=== PATIENT | female | born 1985 | race Caucasian/White ===

== ENCOUNTER 2016-11-07 12:59 | Emergency (ER) | payer OTHER ==
[~2016-11-07] VITALS: Ht 157.5 cm; Wt 67.0 kg
[~2016-11-07 12:59] MED LIST: ACYC400T2 PO; AMO500 PO; CYCL-319 PO; HYDR-3498 PO; IBUP-1542 PO
[2016-11-07 13:08] VITALS: Ht 157.5 cm; Wt 67.0 kg
[2016-11-07 15:27] LABS: ADD SCAN DIFF NO
[2016-11-07 15:30] LABS: BASOPHILS % 0.3 % (0.0-2.0); EOSINOPHILS # 0.1 10^3/ul (0.0-0.5); EOSINOPHILS % 1.7 % (0.0-7.0); HEMATOCRIT 41.8 % (37.0-47.0); HEMOGLOBIN 14.2 g/dl (12.0-16.0); LYMPHOCYTES # 1.8 10^3/ul (0.8-2.9); LYMPHOCYTES % 27.8 % (15.0-51.0); MEAN CORPUSCULAR HEMOGLOBIN 29.8 pg (29.0-33.0); MEAN CORPUSCULAR VOLUME 87.6 fl (82.0-101.0); MEAN PLATELET VOLUME 9.3 fl (7.4-10.4); MONOCYTE # 0.5 10^3/ul (0.3-0.9); MONOCYTES % 7.2 % (0.0-11.0); NEUTROPHIL # 4.1 10^3/ul (1.6-7.5); NEUTROPHILS % 62.5 % (39.0-77.0); PLATELET COUNT 244 10^3/UL (140-415); RED BLOOD COUNT 4.77 10^6/ul (4.20-5.40); RED CELL DISTRIBUTION WIDTH 12.9 % (11.5-14.5); WHITE BLOOD COUNT 6.5 10^3/ul (4.8-10.8)
[2016-11-07 15:34] LABS: ADD UMIC NO; URINE BILIRUBIN (Dip) NEGATIVE (NEGATIVE); URINE BLOOD (Dip) NEGATIVE (NEGATIVE); URINE COLOR LT. YELLOW (YELLOW); URINE GLUCOSE (Dip) NEGATIVE (NEGATIVE); URINE KETONES (Dip) NEGATIVE (NEGATIVE); URINE LEUKOCYTE ESTERASE (Dip) NEGATIVE (NEGATIVE); URINE NITRITE (Dip) NEGATIVE (NEGATIVE); URINE TOTAL PROTEIN (Dip) NEGATIVE (NEGATIVE); URINE UROBILINOGEN (Dip) 0.2 E.U./dL (0.1-1.0)
--- NOTE | 2016-11-07 15:47 | RADRPT ---
PROCEDURE: US Pelvis/OB. CLINICAL INDICATION: Pelvic pain TECHNIQUE: Multiple sonographic images of the pelvis were obtained utilizing a transabdominal and endovaginal technique. The images were reviewed on a PACS workstation. COMPARISON: None. FINDINGS: There is a small cystic structure within the endometrium measuring 0.6 cm which would correspond to a calculated gestational age of 5 weeks and 1 day. No pole or yolk sac is yet visualized. The right ovary measures 2.4 x 1.6 x 1.4 cm. The left ovary measures 4.2 x 3.8 x 3.6 cm. There is a 3.3 cm simple cyst in the left ovary. There is Doppler flow identified in the ovaries. There is a trace amount of free fluid in the cul-de-sac. RPTAT: AA IMPRESSION: Possible early intrauterine at 5 weeks and 1 day. Close followup ultrasound and hCG is recommended. Simple cyst in the left ovary. .Delvin Moss MD, MD Date Time Electronically viewed and signed by .Delvin Moss MD, on 11/07/2016 15:46 .S/
--- NOTE | 2016-11-07 16:27 | ERD ---
ER Documentation Chief Complaint Date/Time DATE: 11/07/16 Chief Complaint , Spotting, Left pelvic pain HPI The patient is a 31-year-old female, A0, who presents to the Emergency Department with complaint of spotting and left pelvic pain. The patient reports that three weeks ago she began to experiencing intermittent left pelvic pain. The pain has been coming and going since. Two weeks ago she was informed by her clinic that she is . Her last menstrual period was 09/24/2016, and therefore she believes that she is approximately 6 weeks and 2 days . She had her first appointment with her ROAD ROLLER ENGINEER today, at which time the patient was noted to be spotting, and to have a urinary tract infection. Given patient's spotting and recent left pelvic pain, she was referred to the ED for further evaluation and ultrasound imaging. Additionally , patient was placed on a course of Macrobid for her urinary tract infection. The patient denies any passage of clots or large pieces of tissue. Denies new vaginal discharge. Denies dysuria or flank pain. Denies fevers, chills, nausea , vomiting, dizziness, weakness, headache, lower extremity edema or any other complaints at this time. ROS All systems reviewed and are negative except as per history of present illness. Medications Home Meds Active Scripts Acetaminophen* (Acetaminophen*) 325 Mg Tablet, 325 MG PO Q4H Y for PAIN AND OR ELEVATED TEMP, #30 TAB Prov:HENRIK PATEL PA-C 11/07/16 Ibuprofen* (Motrin*) 600 Mg Tab, 600 MG PO Q6H Y for PAIN AND OR ELEVATED TEMP, #30 TAB Prov:BLAKE YADAV NP 05/08/16 Amoxicillin* (Amoxicillin*) 500 Mg Cap, 500 MG PO Q8, #30 CAP Prov:BLAKE YADAV NP 05/08/16 Acyclovir* (Acyclovir*) 400 Mg Tablet, 400 MG PO TID for 7 Days, TAB Prov:BLAKE YADAV NP 05/08/16 Hydrocodone Bit-Acetaminophen* ([place]*) 5-325 Mg Tab, 1 TAB PO Q6 Y for PAIN, # 20 TAB Prov:BLAKE YADAV NP 04/20/15 Ibuprofen* (Ibuprofen*) 600 Mg Tablet, 600 MG PO Q6H Y for PAIN AND OR ELEVATED TEMP, #30 TAB Prov:BLAKE YADAVGuera AUT[employer] MECHANICS TEACHER 04/20/15 Cyclobenzaprine Hcl* (Cyclobenzaprine Hcl*) 10 Mg Tablet, 5 MG PO TID, #21 TAB Prov:BLAKE YADAVGuera [employer] MECH[employer] TEACHER 04/20/15 Allergies Allergies: Coded Allergies: No Known Allergy (Unverified , 05/08/16) PMhx/Soc History of Surgery: Yes (ovarian cyst removal and appendectomy at 11yo) Anesthesia Reaction: No Hx Neurological Disorder: No Hx Respiratory Disorders: No Hx Cardiac Disorders: No Hx Psychiatric Problems: No Hx Miscellaneous Medical Probl: No Hx Alcohol Use: No Hx Substance Use: No Hx Tobacco Use: No Smoking Status: Never smoker Physical Exam Vitals Vital Signs Date Time Temp Pulse Resp B/P Pulse Ox O2 Delivery O2 Flow Rate FiO2 11/07/16 16:39 97.8 77 18 120/64 99 Room Air 11/07/16 13:08 98.1 67 18 124/67 99 Physical Exam GENERAL: Well-developed, well-nourished, in no acute distress HEENT: Head is normocephalic, atraumatic. No scleral pallor or icterus. Conjunctiva pink. Moist mucous membranes. NECK: Supple. Full range of motion. RESPIRATORY: Lungs are clear to auscultation bilaterally. Equal breath sounds. Normal expiratory effort. CARDIOVASCULAR: Regular rate and rhythm. S1 and S2 normal. GASTROINTESTINAL: Abdomen is soft, nontender, and nondistended. No guarding, no rebound tenderness. Normal bowel sounds. No abdominal bruits. No gross peritonitis. FLANK: No CVA tenderness. EXTREMITIES: No clubbing, cyanosis, or edema. Normal skin perfusion. Moving all extremities. No focal swelling or erythema. Distal pulses are palpable, 2+ bilaterally. Capillary refill is less than 2 seconds. NEUROLOGIC: The patient is alert, awake, and oriented. No focal deficits. INTEGUMENT: Skin is clean, dry and intact. PSYCHIATRIC: Appropriate; Cooperative. Result Diagram: 11/07/16 1515 Results 24 hrs Laboratory Tests Test 11/07/16 15:11 11/07/16 15:15 Urine Color LT. YELLOW Urine Clarity CLEAR Urine pH 7.5 Urine Specific [place] 1.010 Urine Ketones NEGATIVE Urine Nitrite NEGATIVE Urine Bilirubin NEGATIVE Urine Urobilinogen 0.2 E.U./dL Urine Leukocyte Esterase NEGATIVE Urine Hemoglobin NEGATIVE Urine Glucose NEGATIVE% Urine Total Protein NEGATIVE White Blood Count 6.510^3/ul Red Blood Count 4.7710^6/ul Hemoglobin 14.2g/dl Hematocrit 41.8% Mean Corpuscular Volume 87.6fl Mean Corpuscular Hemoglobin 29.8pg Mean Corpuscular Hemoglobin Concent 34.0g/dl Red Cell Distribution Width 12.9% Platelet Count 81260^3/UL Mean Platelet Volume 9.3fl Neutrophils % 62.5% Lymphocytes % 27.8% Monocytes % 7.2% Eosinophils % 1.7% Basophils % 0.3% Nucleated Red Blood Cells % 0.0/100WBC Neutrophils # 4.110^3/ul Lymphocytes # 1.810^3/ul Monocytes # 0.510^3/ul Eosinophils # 0.110^3/ul Basophils # 0.010^3/ul Nucleated Red Blood Cells # 0.010^3/ul Beta HCG, Quantitative 3308.3mIU/ml Procedures/MDM DIAGNOSTIC TESTS AND INTERPRETATION: PROCEDURE: US Pelvis/OB. CLINICAL INDICATION: Pelvic pain TECHNIQUE: Multiple sonographic images of the pelvis were obtained utilizing a transabdominal and endovaginal technique. The images were reviewed on a PACS workstation. COMPARISON: None. FINDINGS: There is a small cystic structure within the endometrium measuring 0.6 cm which would correspond to a calculated gestational age of 5 weeks and 1 day. No pole or yolk sac is yet visualized. The right ovary measures 2.4 x 1.6 x 1.4 cm. The left ovary measures 4.2 x 3.8 x 3.6 cm. There is a 3.3 cm simple cyst in the left ovary. There is Doppler flow identified in the ovaries. There is a trace amount of free fluid in the cul-de-sac. IMPRESSION:Possible early intrauterine at 5 weeks and 1 day. Close followup ultrasound and hCG is recommended. Simple cyst in the left ovary. .Delvin Moss MD, MD Date Time Electronically viewed and signed by .Delvin Moss MD, on 11/07/2016 15: 46 The possibility of threatened vs. early vs. ectopic was discussed with the patient and she was told to follow up with her RO[facility] [employer]ER ENGINEER within 2-3 days for re-evaluation. The patient complies and agrees with plan. MEDICAL DECISION MAKING: This is a 31-year-old female presenting to the Emergency Department complaining of vaginal spotting and left pelvic pain. She had no significant abnormalities noted on physical examination. Vital signs were normal. Differential diagnosis includes, but is not limited to, ectopic , cervicitis, fibroids, molar , implantation bleeding, heterotopic , septic , missed , incomplete , inevitable , threatened , complete , coagulopathy, fibroids, adenomyosis, endometriosis, neoplasia, vaginitis, PID, vaginal trauma , dysfunctional uterine bleeding. No significant abnormalities were noted on testing ordered. Hemoglobin and hematocrit are stable, no severe anemia. Beta hCG is 3308.3. Rh (+), no indication for RhoGAM. Ultrasound performed revealed a small cystic structure within the endometrium measuring 0.6 cm which would correspond to a calculated gestational age of 5 weeks and 1 day. No pole or yolk sac is yet visualized.Additionally, a 3.3 cm simple cyst in the left ovary. After rest the patient reports no new complaints. Upon review and interpretation of the patient's presentation and overall ER course, I believe the patient's symptoms are most consistent with threatened and left ovarian cyst. However, at this time, ectopic cannot be ruled out, as no pole or yolk sac were visualized. The patient patient is in stable condition with stable vital signs and therefore can be discharged home with strict return precautions for signs of deteriorating or worsening condition. The patient is advised to follow up with her RO[facility] [employer]ER ENGINEER within 2-3 days for reevaluation and further management, or return to the ER sooner for any worsening symptoms. I shared all laboratory and diagnostic imaging studies with the patient at length and in great detail, and the patient verbally understands and agrees with the plan for further observation and care as an outpatient. At the time of discharge, all questions were answered. Departure Diagnosis: Primary Impression: Threatened Additional Impressions: Pelvic pain during Left ovarian cyst Condition: Stable Patient Instructions: Ovarian Cyst, Possible Miscarriage (Threatened ) , What Are Ovarian Cysts? Additional Instructions: Follow up with your ROAD ROLLER ENGINEER within 2-3 days for repeat beta hCG, reevaluation and further management. Return to the ED sooner for any new or worsening symptoms. HENRIK PATEL PA-C Nov 07, 2016 16:27
[2016-11-07] MEDS ORDERED: ACET325T45 PO (16:28)
[2016-11-07 16:39] VITALS: BP 120/64; PULSE 77; RESP 18; TEMP 97.8
== END 2016-11-07 16:40 | disposition home or self-care (01) ==
LOC: FTE 12:59
DX: O20.0 Threatened abortion (principal); R10.2 Pelvic and perineal pain; O34.81 Maternal care for other abnormalities of pelvic organs, first trimester; Z3A.01 Less than 8 weeks gestation of pregnancy
CPT/HCPCS: 36415; 76801; 76817; 81003; 84702; 85025; 86900; 86901; 87086

== ENCOUNTER 2016-12-14 08:32 | Emergency (ER) | payer OTHER ==
[~2016-12-14] VITALS: Ht 160 cm; Wt 78.0 kg
[~2016-12-14 08:32] MED LIST changes: +ACET325T45 PO
[2016-12-14 08:37] VITALS: Ht 160 cm; Wt 78.0 kg
--- NOTE | 2016-12-14 09:53 | ERD ---
ER Documentation Chief Complaint Date/Time DATE: 12/14/16 TIME: 09:49 Chief Complaint back pain , abd cramping , 10 weeks HPI 31-year-old female who is A0 approximately 10 weeks when he comes in with back pain, pelvic cramping, and frequent urination. Patient reports pain in the suprapubic region, cramping of nature, as well as in low back and right CVA area. She states that she has been seen by her [employer]ANCH SUPERVISOR, last week at 9 weeks and reports that there were positive heart tones. Pain gets better with Tylenol. Her last menstrual period was on September 24, 2016. Her history includes a right ovarian cyst as well as a left ovarian cyst. She reports that she had vaginal bleeding earlier in the however no recent vaginal bleeding. And completed Macrobid about 1 week ago. ROS All systems reviewed and are negative except as per history of present illness. Medications Home Meds Active Scripts Acetaminophen* (Acetaminophen*) 325 Mg Tablet, 325 MG PO Q4H Y for PAIN AND OR ELEVATED TEMP, #30 TAB Prov:HENRIK PATEL PA-C 11/07/16 Ibuprofen* (Motrin*) 600 Mg Tab, 600 MG PO Q6H Y for PAIN AND OR ELEVATED TEMP, #30 TAB Prov:BLAKE YADAV NP 05/08/16 Amoxicillin* (Amoxicillin*) 500 Mg Cap, 500 MG PO Q8, #30 CAP Prov:BLAKE YADAV NP 05/08/16 Acyclovir* (Acyclovir*) 400 Mg Tablet, 400 MG PO TID for 7 Days, TAB Prov:BLAKE YADAV NP 05/08/16 Hydrocodone Bit-Acetaminophen* ([place]*) 5-325 Mg Tab, 1 TAB PO Q6 Y for PAIN, # 20 TAB Prov:BLAKE YADAV NP 04/20/15 Ibuprofen* (Ibuprofen*) 600 Mg Tablet, 600 MG PO Q6H Y for PAIN AND OR ELEVATED TEMP, #30 TAB Prov:BLAKE YADAV NP 04/20/15 Cyclobenzaprine Hcl* (Cyclobenzaprine Hcl*) 10 Mg Tablet, 5 MG PO TID, #21 TAB Prov:BLAKE YADAV NP 04/20/15 Allergies Allergies: Coded Allergies: No Known Allergy (Unverified , 12/14/16) PMhx/Soc History of Surgery: Yes (ovarian cyst removal and appendectomy at 11yo) Anesthesia Reaction: No Hx Neurological Disorder: No Hx Respiratory Disorders: No Hx Cardiac Disorders: No Hx Psychiatric Problems: No Hx Miscellaneous Medical Probl: No Hx Alcohol Use: No Hx Substance Use: No Hx Tobacco Use: No Smoking Status: Never smoker Physical Exam Vitals Vital Signs Date Time Temp Pulse Resp B/P Pulse Ox O2 Delivery O2 Flow Rate FiO2 12/14/16 11:44 98.3 12/14/16 08:37 98.8 90 20 129/80 99 Physical Exam General: Well-developed, well-nourished. The patient appears in no acute distress. HEENT: Head is normocephalic, atraumatic. No scleral icterus. Neck: Supple. Nontender. Lungs: Clear to auscultation. Normal air movement. Heart: Regular rate and rhythm. S1 and S2 are normal. No murmurs, gallops, or rubs. Abdomen: Soft, suprapubic tenderness, nondistended. Bowel sounds are normoactive. No McBurney's tenderness, no rebound pain, negative Shafer sign. Back: Diffuse paraspinal tenderness in the lumbar spine on the left side Extremities: No clubbing or cyanosis. Normal pulses. Moving extremities x 4. No weakness. Neurologic: Alert and oriented 3. No focal deficits. Skin: Normal turgor. No rash or lesions. Result Diagram: 12/14/16 0944 Results 24 hrs Laboratory Tests Test 12/14/16 09:44 12/14/16 09:49 White Blood Count 5.310^3/ul Red Blood Count 4.2110^6/ul Hemoglobin 12.6g/dl Hematocrit 36.4% Mean Corpuscular Volume 86.5fl Mean Corpuscular Hemoglobin 29.9pg Mean Corpuscular Hemoglobin Concent 34.6g/dl Red Cell Distribution Width 12.8% Platelet Count 32300^3/UL Mean Platelet Volume 9.4fl Neutrophils % 67.7% Lymphocytes % 23.6% Monocytes % 6.6% Eosinophils % 1.5% Basophils % 0.2% Nucleated Red Blood Cells % 0.0/100WBC Neutrophils # 3.610^3/ul Lymphocytes # 1.310^3/ul Monocytes # 0.410^3/ul Eosinophils # 0.110^3/ul Basophils # 0.010^3/ul Nucleated Red Blood Cells # 0.010^3/ul Beta HCG, Quantitative 70023.0mIU/ml Urine Color LT. YELLOW Urine Clarity CLEAR Urine pH 6.0 Urine Specific [place] 1.010 Urine Ketones NEGATIVE Urine Nitrite NEGATIVE Urine Bilirubin NEGATIVE Urine Urobilinogen 0.2 E.U./dL Urine Leukocyte Esterase NEGATIVE Urine Hemoglobin NEGATIVE Urine Glucose NEGATIVE% Urine Total Protein NEGATIVE PROCEDURE: US Pelvis. CLINICAL INDICATION: Pelvic cramping. TECHNIQUE: Multiple sonographic images of the pelvis were obtained utilizing a transabdominal and endovaginal technique. The images were reviewed on a PACS workstation. COMPARISON: 11/07/2016 FINDINGS: Uterus is upper limit normal in size at 12.1 x 8.7 x 8.2 cm. There is an intrauterine gestational sac which contains a yolk sac and a pole with cardiac activity at 163 beats per minute. Mean gestational sac size is 3.66 cm consist with a 6-cskz-9-day gestation. Mean crown-rump length is 3.64 cm consistent with a 51-ryno-6-day gestation. There are no abnormal fluid collections. The right ovary measures 2.8 x 1.2 x 1.6 cm. Left ovary measures 5.1 x 3.3 x 4.1 cm. There is a 3.3 x 3.4 x 3.4 cm left ovarian cyst. There are no adnexal masses or free fluid in the cul-de-sac. IMPRESSION: 1. Single living intrauterine gestation with a mean gestational age by ultrasound of 9-week 6 days plus or minus 5 days. Estimated date of delivery is 07/13/2017. RPTAT: [facility] Physician Fatemeh Date Time Electronically viewed and signed by Physician Fatemeh on 12/14/2016 10: 43 JH/ Procedures/MDM ED COURSE: Labs, urine and pelvic ultrasound were obtained. MDM: 31-year-old female presents with back pain, pelvic cramping, patient has a single live intrauterine , labs and urine were also obtained. She does not have any continuing urinary tract infection, signs of pyelonephritis. She does have reproducible back pain with palpation that is likely musculoskeletal. No evidence of any adnexal masses, tubo-ovarian abscess, PID, cervicitis, pyelonephritis. Departure Diagnosis: Primary Impression: First trimester Condition: Good MAURICE CESAR PA-C Dec 14, 2016 09:53
[2016-12-14 09:59] LABS: ADD SCAN DIFF NO
[2016-12-14 10:03] LABS: ADD UMIC NO; URINE BILIRUBIN (Dip) NEGATIVE (NEGATIVE); URINE BLOOD (Dip) NEGATIVE (NEGATIVE); URINE COLOR LT. YELLOW (YELLOW); URINE GLUCOSE (Dip) NEGATIVE (NEGATIVE); URINE KETONES (Dip) NEGATIVE (NEGATIVE); URINE LEUKOCYTE ESTERASE (Dip) NEGATIVE (NEGATIVE); URINE NITRITE (Dip) NEGATIVE (NEGATIVE); URINE TOTAL PROTEIN (Dip) NEGATIVE (NEGATIVE); URINE UROBILINOGEN (Dip) 0.2 E.U./dL (0.1-1.0)
[2016-12-14 10:05] LABS: BASOPHILS % 0.2 % (0.0-2.0); EOSINOPHILS # 0.1 10^3/ul (0.0-0.5); EOSINOPHILS % 1.5 % (0.0-7.0); HEMATOCRIT 36.4 % (37.0-47.0); HEMOGLOBIN 12.6 g/dl (12.0-16.0); LYMPHOCYTES # 1.3 10^3/ul (0.8-2.9); LYMPHOCYTES % 23.6 % (15.0-51.0); MEAN CORPUSCULAR HEMOGLOBIN 29.9 pg (29.0-33.0); MEAN CORPUSCULAR HGB CONC 34.6 g/dl (32.0-37.0); MEAN CORPUSCULAR VOLUME 86.5 fl (82.0-101.0); MEAN PLATELET VOLUME 9.4 fl (7.4-10.4); MONOCYTE # 0.4 10^3/ul (0.3-0.9); MONOCYTES % 6.6 % (0.0-11.0); NEUTROPHIL # 3.6 10^3/ul (1.6-7.5); NEUTROPHILS % 67.7 % (39.0-77.0); PLATELET COUNT 206 10^3/UL (140-415); RED BLOOD COUNT 4.21 10^6/ul (4.20-5.40); RED CELL DISTRIBUTION WIDTH 12.8 % (11.5-14.5); WHITE BLOOD COUNT 5.3 10^3/ul (4.8-10.8)
--- NOTE | 2016-12-14 10:43 | RADRPT ---
PROCEDURE: US Pelvis. CLINICAL INDICATION: Pelvic cramping. TECHNIQUE: Multiple sonographic images of the pelvis were obtained utilizing a transabdominal and endovaginal technique. The images were reviewed on a PACS workstation. COMPARISON: 11/07/2016 FINDINGS: Uterus is upper limit normal in size at 12.1 x 8.7 x 8.2 cm. There is an intrauterine gestational s ac which contains a yolk sac and a pole with cardiac activity at 163 beats per minute. Mean g estational sac size is 3.66 cm consist with a 1-nkbe-4-day gestation. Mean crown-rump length is 3.6 4 cm consistent with a 37-xmyl-3-day gestation. There are no abnormal fluid collections. The right ovary measures 2.8 x 1.2 x 1.6 cm. Left ovary measures 5.1 x 3.3 x 4.1 cm. There is a 3.3 x 3.4 x 3.4 cm left ovarian cyst. There are no adnexal masses or free fluid in the cul-de-sac. IMPRESSION: 1. Single living intrauterine gestation with a mean gestational age by ultrasound of 9-week 6 days p hunter or minus 5 days. Estimated date of delivery is 07/13/2017. RPTAT: [facility] Physician Fatemeh Date Time Electronically viewed and signed by Physician Fatemeh on 12/14/2016 10:43 JH/
[2016-12-14 11:44] VITALS: TEMP 98.3
== END 2016-12-14 11:44 | disposition home or self-care (01) ==
LOC: FTE 08:32
DX: O99.89 Other specified diseases and conditions complicating pregnancy, childbirth and the puerperium (principal); M54.9 Dorsalgia, unspecified; R10.2 Pelvic and perineal pain; Z3A.10 10 weeks gestation of pregnancy
CPT/HCPCS: 36415; 76801; 81003; 84702; 85025; 86900; 86901; 87086

== ENCOUNTER 2017-01-20 14:43 | Emergency (ER) | payer OTHER ==
[~2017-01-20] VITALS: Wt 79.5 kg
--- NOTE | 2017-01-20 15:24 | ERD ---
ER Documentation Chief Complaint Date/Time DATE: 01/20/17 TIME: 15:18 Chief Complaint r. flank pain, 15 wks preg HPI 31-year-old female who presented emergency department for right flank pain that started last night. She also complains of pelvic pain. Her right flank pain was described as sharp. Her pelvic pain was described as crampy. Stated that she has UTI a week ago and was prescribed with nitrofurantoin by her OB. She also added that she has UTIs for the past 2 months and that her first antibiotic was nitrofurantoin, was changed to erythromycin by her OB, then she got another UTI and was prescribed with Keflex. With her last antibiotic use was nitrofurantoin. She is sexually active with one partner only, her who has no symptoms. Denies headache, loss of consciousness, dizziness, blurry vision, changes in vision, photophobia, facial pain, ear pain, throat pain, difficulty swallowing, neck pain, shoulder pain, chest pain, cough, hemoptysis, loss of appetite, hematochezia, diarrhea, constipation, urinary symptoms, bladder and bowel incontinences, extremity weakness, extremity tenderness, numbness or tingling sensation, difficulty walking, recent travel, recent exposure to illness, fever , chills. Allergy: No known drug allergies. PMH: Left ovarian cyst. Family medical history: AO LMP: September 24, 2016. RANDY: July 09, 2017. Medications: vitamins. Macrobid. Surgery: "I had a left ovarian cyst surgery." Primary Social History: Denies smoking, use of alcohol, use of illegal drugs. ROS All systems reviewed and are negative except as per history of present illness. Medications Home Meds Active Scripts Acetaminophen* (Acetaminophen*) 325 Mg Tablet, 325 MG PO Q4H Y for PAIN AND OR ELEVATED TEMP, #30 TAB Prov:HENRIK PATEL PA-C 11/07/16 Ibuprofen* (Motrin*) 600 Mg Tab, 600 MG PO Q6H Y for PAIN AND OR ELEVATED TEMP, #30 TAB Prov:BLAKE YADAV NP 05/08/16 Amoxicillin* (Amoxicillin*) 500 Mg Cap, 500 MG PO Q8, #30 CAP Prov:BLAKE YADAV NP 05/08/16 Acyclovir* (Acyclovir*) 400 Mg Tablet, 400 MG PO TID for 7 Days, TAB Prov:VICENTABLAKE CAUSEYUri Garza AGED OR DISABLED CARER 05/08/16 Hydrocodone Bit-Acetaminophen* ([place]winna*) 5-325 Mg Tab, 1 TAB PO Q6 Y for PAIN, # 20 TAB Prov:VICENTABLAKE RAO Kayla AGED OR DISABLED CARER 04/20/15 Ibuprofen* (Ibuprofen*) 600 Mg Tablet, 600 MG PO Q6H Y for PAIN AND OR ELEVATED TEMP, #30 TAB Prov:REJIBLAKE CABALLERO AGED OR DISABLED CARER 04/20/15 Cyclobenzaprine Hcl* (Cyclobenzaprine Hcl*) 10 Mg Tablet, 5 MG PO TID, #21 TAB Prov:VICENTABLAKE JALEN Garza AGED OR DISABLED CARER 04/20/15 Allergies Allergies: Coded Allergies: No Known Allergy (Unverified , 12/14/16) PMhx/Soc History of Surgery: Yes (ovarian cyst removal and appendectomy at 11yo) Anesthesia Reaction: No Hx Neurological Disorder: No Hx Respiratory Disorders: No Hx Cardiac Disorders: No Hx Psychiatric Problems: No Hx Miscellaneous Medical Probl: No Hx Alcohol Use: No Hx Substance Use: No Hx Tobacco Use: No Physical Exam Vitals Vital Signs Date Time Temp Pulse Resp B/P Pulse Ox O2 Delivery O2 Flow Rate FiO2 01/20/17 14:46 97.6 97 20 130/77 99 Physical Exam CONSTITUTIONAL: Well-appearing; well-nourished; in no apparent distress. HEAD: Normocephalic; atraumatic. EYES: Conjunctiva clear, sclera non-icteric, EOM intact. PERRL Ears: Hearing intact. EACs clear, TMs non-bulging, non-inflamed, translucent & mobile, ossicles normal appearance, No obstructions, no erythema, no discharges Nose: No obstructions. No polyps. No external lesions. Mucosa non-inflamed. No external lesions, septum and turbinates normal. No rhinorrhea. No discharges. Frontal sinus is non-tender to palpation. Maxillary sinus is non-tender to palpation. MOUTH: Moist mucous membranes, no lesion, no obstructions, no vesicles, no thrush, patent airway Throat: Uvula in midline. Right tonsil is +1 with no erythema, no exudate. Left tonsil is +1 with no erythema, no exudate. Tolerating secretions well. Good gag reflex. Patent airway. Neck: Supple, without lesions, bruits, or adenopathy. No mass. Thyroid non- enlarged and non-tender to palpation. CHEST: Symmetrical chest. Respirations even and not labored. No retractions noted. CARDIOVASCULAR: Normal S1, S2. RRR. No murmurs, gallops. RESPIRATORY: Normal chest excursion with respiration; breath sounds clear and equal bilaterally; no wheezes, rhonchi, or rales. Breathing even and unlabored. Speaking in clear, full, and complete sentences w/ ease. ABDOMEN: Normal bowel sounds normal. Soft, round, non-distended, non-guarding, no tenderness, no rebound, no organomegaly, no masses, no pulsating abdominal mass. No hernia. No peritoneal signs. : Right CVA tenderness on light and deep palpation/percussion. No left CVA tenderness. BACK: Symmetrical shoulder. Spine is midline without deformity, tenderness. No evidence of trauma or deformity. PELVIS: Stable pelvis. No evidence of trauma or deformity. Tenderness below the navel area. MUSCULOSKELETAL: Normal gait and station. No misalignment, asymmetry, crepitation, defects, tenderness, masses, effusions, decreased range of motion, instability, atrophy or abnormal strength or tone in the head, neck, spine, ribs , pelvis or extremities. No calf tenderness. NEUROVASCULAR: Distal pulses are present. Pedal pulse are present, equal, and normal. Capillary refills are < 2 seconds. NEUROLOGIC: Alert and oriented x4. Speaks full and clear sentences. Cranial Nerves II-XII normal. Sensation to pain, touch, and proprioception normal. Grossly unremarkable. No neurologic deficits. Romberg test is negative. PSYCHOLOGICAL: The patients mood and manner are appropriate. No hallucinations , delusions. Not SI. Not HI. Has the capacity to decide for self SKIN: Normal for age and ethnicity; warm; dry; good turgor; no apparent lesions or exudates. No rashes, hives, discoloration. Intact. Result Diagram: 01/20/17 1541 01/20/17 1541 Results 24 hrs Laboratory Tests Test 01/20/17 15:41 White Blood Count 6.710^3/ul Red Blood Count 3.9710^6/ul Hemoglobin 12.4g/dl Hematocrit 34.1% Mean Corpuscular Volume 85.9fl Mean Corpuscular Hemoglobin 31.2pg Mean Corpuscular Hemoglobin Concent 36.4g/dl Red Cell Distribution Width 13.0% Platelet Count 12743^3/UL Mean Platelet Volume 9.5fl Neutrophils % 68.7% Lymphocytes % 23.8% Monocytes % 6.4% Eosinophils % 0.7% Basophils % 0.1% Nucleated Red Blood Cells % 0.0/100WBC Neutrophils # 4.610^3/ul Lymphocytes # 1.610^3/ul Monocytes # 0.410^3/ul Eosinophils # 0.110^3/ul Basophils # 0.010^3/ul Nucleated Red Blood Cells # 0.010^3/ul Urine Color YELLOW Urine Clarity CLEAR Urine pH 6.0 Urine Specific [place] 1.025 Urine Ketones 15 Urine Nitrite NEGATIVE Urine Bilirubin NEGATIVE Urine Urobilinogen 0.2 E.U./dL Urine Leukocyte Esterase NEGATIVE Urine Hemoglobin NEGATIVE Urine Glucose NEGATIVE% Urine Total Protein NEGATIVE Sodium Level 141mmol/L Potassium Level 4.2mmol/L Chloride Level 110mmol/L Carbon Dioxide Level 21mmol/L Anion Gap 14 Blood Urea Nitrogen 3mg/dl Creatinine 0.52mg/dl Glucose Level 86mg/dl Calcium Level 8.9mg/dl Total Bilirubin 0.2mg/dl Direct Bilirubin 0.00mg/dl Indirect Bilirubin 0.2mg/dl Aspartate Amino Transf (AST/SGOT) 30IU/L Alanine Aminotransferase (ALT/SGPT) 38IU/L Alkaline Phosphatase 72IU/L Total Protein 7.3g/dl Albumin 4.3g/dl Globulin 3.00g/dl Albumin/Globulin Ratio 1.43 Amylase Level 102U/L Lipase 92U/L Beta HCG, Quantitative 42616.0mIU/ml Current Medications Medications (Trade) Dose Ordered Sig/Stacey Route PRN Reason Start Time Stop Time Status Last Admin Dose Admin Acetaminophen (Tylenol Tab) 500 mg ONCE STAT PO 01/20/17 15:27 01/20/17 15:28 DC 01/20/17 15:35 Ondansetron HCl (Zofran Odt) 4 mg ONCE STAT ODT 01/20/17 15:38 01/20/17 15:41 DC 01/20/17 15:42 Ondansetron HCl (Zofran Odt) 4 mg STK-MED ONCE ODT 01/20/17 15:39 01/20/17 15:40 DC Procedures/MDM Examination: Please see physical examination. Disease process, medical treatment was explained to the patient and family member. They verbalized understanding and agreed with the diagnostic tests, medical treatment, and follow-up care. Radiology: OB ultrasound Impression: Single viable intrauterine gestation of approximately 15 weeks 6 days. Estimated date of delivery 07/08/2017. Estimated weight 135 g. Maternal left Vigen 2.5 cm cyst. Renal ultrasound Impression: Unremarkable renal ultrasound. Blood works: Reviewed. POC urine : Urinalysis: Reviewed. Culture urine: Awaiting for results. Treatment: Tylenol. Re-evaluation: Denies headache, dizziness, blurry vision, neck pain, shoulder pain, chest pain, abdominal pain, back pain. No episodes of emesis here in the emergency department. There is no right upper/right lower/left upper/left lower /epigastric abdominal tenderness to light and deep palpation. Negative on Rovsing's sign. Negative [place] sign. No CVA tenderness. Denies vaginal bleeding. No peritoneal signs. Ambulatory with steady gait. Stated that she feels much better at this time. Consultation: None. Differential diagnosis: Ectopic miscarriage versus nephrolithiasis versus pyelonephritis versus complicated urinary tract infection versus urinary tract infection Medical decision m[age]-year-old female who presented emergency department for right flank pain that started last night. She also complains of pelvic pain. Her right flank pain was described as sharp. Her pelvic pain was described as crampy. Stated that she has UTI a week ago and was prescribed with nitrofurantoin by her OB. She also added that she has UTIs for the past 2 months and that her first antibiotic was nitrofurantoin, was changed to erythromycin by her OB, then she got another UTI and was prescribed with Keflex. With her last antibiotic use was nitrofurantoin. She is sexually active with one partner only, her who has no symptoms pelvic pain in , flank pain and . I explained to the patient that this is a natural OB process. Instructed her to follow-up with her OB in the next 24-48 hours. She and her agreed and verbalized understanding of the plan of care. This case was discussed with supervising emergency room physician, Dr. Bucky Gregory who agreed in my medical decision making. Medications prescribed are the following: Tylenol. Zofran. Patient and family member are made aware of the side effects and adverse reactions of the medications prescribed. Instructed on when to seek emergent and medical attention in case allergic/anaphylactic reactions or severe side effects and or adverse reactions to medications. Patient and family member verbalized understanding. Patient instructed to: Instructed to follow-up with his PCP in 24-48 hours. Follow-up with OB in the next 24-48 hours. Patient stated that she will make sure to see her OB in the next 24 hours. Instructed to Call 911 for chest pain, shortness of breath. Advised to come back here in ED as soon as possible for severity of symptoms which includes but not limited to: any new symptoms; shortness of breath/difficulty of breathing; cardiovascular changes; severe gastrointestinal symptoms; signs and symptoms of bleeding and or infection; signs of compartment syndrome/neurovascular changes; neurological changes/deficits. Patient and family member verbalized understanding. Upon discharge, patient is alert and oriented x 4, speaks full and clear sentences, denies pain, has no neurological deficits, has no neurovascular deficits, difficulty of breathing. Breathing even and unlabored. Lung sounds are clear to auscultation. Not in distress. Appears comfortable. Ambulatory with steady gait. Appears satisfied with care provided here in ED. Departure Diagnosis: Primary Impression: Pelvic pain during Additional Impression: Flank pain Condition: Good Additional Instructions: Patient instructed to: Instructed to follow-up with his PCP in 24-48 hours. Follow-up with OB in the next 24-48 hours. Patient stated that she will make sure to see her OB in the next 24 hours. Instructed to Call 911 for chest pain, shortness of breath. Advised to come back here in ED as soon as possible for severity of symptoms which includes but not limited to: any new symptoms; shortness of breath/difficulty of breathing; cardiovascular changes; severe gastrointestinal symptoms; signs and symptoms of bleeding and or infection; signs of compartment syndrome/neurovascular changes; neurological changes/deficits. Patient and family member verbalized understanding. LIBERTY MENEZES Jan 20, 2017 15:23
[2017-01-20] MEDS ORDERED: ACETAMINOPHEN 500 MG TAB PO STA (15:27)
[2017-01-20] MEDS ORDERED: ONDANSETRON (ODT) 4 MG TAB ODT STA (15:38)
[2017-01-20] MEDS ORDERED: ONDANSETRON (ODT) 4 MG TAB ODT ONE (15:39)
[2017-01-20 15:47] LABS: ADD SCAN DIFF NO
[2017-01-20 15:50] LABS: BASOPHILS % 0.1 % (0.0-2.0); EOSINOPHILS # 0.1 10^3/ul (0.0-0.5); EOSINOPHILS % 0.7 % (0.0-7.0); HEMATOCRIT 34.1 % (37.0-47.0); HEMOGLOBIN 12.4 g/dl (12.0-16.0); LYMPHOCYTES # 1.6 10^3/ul (0.8-2.9); LYMPHOCYTES % 23.8 % (15.0-51.0); MEAN CORPUSCULAR HEMOGLOBIN 31.2 pg (29.0-33.0); MEAN CORPUSCULAR HGB CONC 36.4 g/dl (32.0-37.0); MEAN CORPUSCULAR VOLUME 85.9 fl (82.0-101.0); MEAN PLATELET VOLUME 9.5 fl (7.4-10.4); MONOCYTE # 0.4 10^3/ul (0.3-0.9); MONOCYTES % 6.4 % (0.0-11.0); NEUTROPHIL # 4.6 10^3/ul (1.6-7.5); NEUTROPHILS % 68.7 % (39.0-77.0); PLATELET COUNT 183 10^3/UL (140-415); RED BLOOD COUNT 3.97 10^6/ul (4.20-5.40); WHITE BLOOD COUNT 6.7 10^3/ul (4.8-10.8)
[2017-01-20 15:52] LABS: ADD UMIC NO; URINE BILIRUBIN (Dip) NEGATIVE (NEGATIVE); URINE BLOOD (Dip) NEGATIVE (NEGATIVE); URINE COLOR YELLOW (YELLOW); URINE GLUCOSE (Dip) NEGATIVE (NEGATIVE); URINE KETONES (Dip) 15 (NEGATIVE); URINE LEUKOCYTE ESTERASE (Dip) NEGATIVE (NEGATIVE); URINE NITRITE (Dip) NEGATIVE (NEGATIVE); URINE TOTAL PROTEIN (Dip) NEGATIVE (NEGATIVE); URINE UROBILINOGEN (Dip) 0.2 E.U./dL (0.1-1.0)
--- NOTE | 2017-01-20 16:15 | RADRPT ---
PROCEDURE: US OB. CLINICAL INDICATION: age and weight. TECHNIQUE: Multiple sonographic images of the pelvis were obtained. Transabdominal imaging only w as performed. The images were reviewed on a PACS workstation. COMPARISON: No prior studies are available for comparison. FINDINGS: There is a single viable intrauterine gestation. Cardiac activity is present with 146 beats per minute. There is a variable breech presentation. Measurements were made in order to determine age. The results are as follows: BPD = 3.2 cm HC = 11.6 cm. AC = 9.7 cm. FL = 2.0 cm. Estimated gestational age of approximately 15 weeks a 6 days. The estimated date of delivery is 07/08/2017. The EFW = 135 g. The placenta is posterior. There is no evidence for an abruption or placenta previa. There are no anomalies identified. There is a normal amount of amniotic fluid present. There is a 2.5 cm maternal left ovarian cyst. IMPRESSION: 1. Single viable intrauterine gestation of approximately 15 weeks 6 days. 2. Estimated date of delivery 07/08/2017 . 3. Estimated weight 135 g. 4. Maternal left ovarian 2.5 cm cyst. RPTAT: QQ .Adolph Dash MD, Date Time Electronically viewed and signed by .Adolph Dash MD, on 01/20/2017 16:15 .L/
--- NOTE | 2017-01-20 16:16 | RADRPT ---
PROCEDURE: US Renal. CLINICAL INDICATION: Flank pain. TECHNIQUE: Multiple sonographic images of the kidneys and bladder were obtained. Evaluation of th e kidneys and bladder was performed using a curved array transducer. The images were reviewed on a high-resolution PACS workstation. COMPARISON: No prior studies are available for comparison. FINDINGS: The right kidney measures 9.7 cm in length. The left kidney measures 9.6 cm in length. The kidneys a ppear normal in size, shape and contour..There is no mass, calculus, or obstructive uropathy. The b ladder is decompressed. . The visualized portions of the aorta and inferior vena cava are unremarka ble. IMPRESSION: 1. Unremarkable renal ultrasound. RPTAT: QQ .Adolph Dash MD, MD Date Time Electronically viewed and signed by .Adolph Dash MD, on 01/20/2017 16:15 .L/
[2017-01-20 16:23] LABS: ALBUMIN 4.3 g/dl (3.3-4.9); ALBUMIN/GLOBULIN RATIO 1.43; AMYLASE 102 U/L (11-123); BILIRUBIN,INDIRECT 0.2 mg/dl (0-1.1); BILIRUBIN,TOTAL 0.2 mg/dl (0.2-1.3); CALCIUM 8.9 mg/dl (8.4-10.2); CREATININE 0.52 mg/dl (0.44-1.00); POTASSIUM 4.2 mmol/L (3.5-5.1); TOTAL PROTEIN 7.3 g/dl (6.1-8.1)
[2017-01-20] MEDS ORDERED: ACET500C5 PO (17:27)
[2017-01-20] MEDS ORDERED: ONDA4TAB14 PO (17:28)
[2017-01-20 17:58] VITALS: BP 115/77; PULSE 70; RESP 18; TEMP 98.5
== END 2017-01-20 17:59 | disposition home or self-care (01) ==
LOC: FTE 14:43
DX: O26.892 Other specified pregnancy related conditions, second trimester (principal); R10.2 Pelvic and perineal pain; Z3A.15 15 weeks gestation of pregnancy
CPT/HCPCS: 36415; 76775; 76805; 80053; 81003; 82150; 83690; 84702; 85025; 86900; 86901; 87086; Z7502; Z7610

== ENCOUNTER 2017-03-17 20:58 | Outpatient (CLI) | payer OTHER ==
[~2017-03-17] VITALS: Ht 149.9 cm; Wt 81.6 kg
[~2017-03-17 20:58] MED LIST changes: +ACET500C5 PO; +ONDA4TAB14 PO
[2017-03-17 21:22] VITALS: Ht 149.9 cm; Wt 81.6 kg
[2017-03-17] MEDS ORDERED: FERR325C PO (21:27)
[2017-03-17] MEDS ORDERED: PRENAT PO (21:27)
[2017-03-17] MEDS ORDERED: CALC-516 PO (21:28)
[2017-03-17 21:42] VITALS: BP 116/70; PULSE 91; RESP 18
[2017-03-17 22:06] LABS: ADD UMIC YES; UR ASCORBIC ACID NEGATIVE (NEGATIVE); UR BACTERIA FEW /HPF (NONE SEEN); UR BILIRUBIN (Dip) NEGATIVE (NEGATIVE); UR BLOOD (Dip) NEGATIVE (NEGATIVE); UR CLARITY CLEAR (CLEAR); UR COLOR YELLOW (YELLOW); UR GLUCOSE (Dip) NEGATIVE (NEGATIVE); UR KETONES (Dip) TRACE mg/dL (NEGATIVE); UR LEUKOCYTE ESTERASE (Dip) NEGATIVE Leu/ul (NEGATIVE); UR MUCUS FEW /HPF (NONE SEEN); UR NITRITE (Dip) NEGATIVE (NEGATIVE); UR RBC 4 /HPF (0-5); UR SPECIFIC GRAVITY (Dip) 1.033 (1.003-1.030); UR SQUAMOUS EPITHELIAL CELL FEW /HPF (FEW); UR TOTAL PROTEIN (Dip) 1+ mg/dl (NEGATIVE); UR UROBILINOGEN (Dip) 1+ mg/dL (NEGATIVE)
--- NOTE | 2017-03-17 22:58 | RADRPT ---
PROCEDURE: Obstetrical ultrasound, limited. CLINICAL INDICATION: labor. TECHNIQUE: Multiple sonographic images of the pelvis were obtained using transabdominal technique . Images were obtained with bceerra scale and color Doppler. Transvaginal evaluation of the cervix was also performed. The images were reviewed on a PACS workstation. COMPARISON: 01/20/2017. FINDINGS: There is a single living intrauterine gestation with the fetus in a vertex presentation. hear t tones of 163 beats per minute are identified. The placenta is posterior in location, grade 1. Th ere is no evidence of placental abruption. The cervix is closed measuring 5.2 cm. IMPRESSION: Single viable intrauterine gestation. Cervical length of 5.2 cm. .Jim Ritchie MD, Date Time Electronically viewed and signed by .Jim Ritchie MD, MD on 03/17/2017 22:57 .T/
--- NOTE | 2017-03-18 00:15 | PN ---
Triage Information Date/Time February Weeks of Gestation 23w 6d : 3 Para: 2 Diabetes: none Hypertention: none Additional information Pt just came back from 3 days in [place] and had intercourse during that trip and noticed some spotting today. +FM. No leaking. PMHx: Left ovarian cyst. Low Al=A this . PSHx: right ovarian cystectomy with an appendectomy. NKDA. Objective Vital Signs Date Time Temp Pulse Resp B/P Pulse Ox O2 Delivery O2 Flow Rate FiO2 03/17/17 21:42 98.2 91 18 116/70 Room Air Heart Rate: 130's Contractions: None Results/Medications Results 24 hrs Laboratory Tests Test 03/17/17 21:20 Urine Color YELLOW Urine Clarity CLEAR Urine pH 5.0 Urine Specific [place] 1.033 H Urine Ketones TRACE A Urine Nitrite NEGATIVE Urine Bilirubin NEGATIVE Urine Urobilinogen 1+ H Urine Leukocyte Esterase NEGATIVE Urine Microscopic RBC 4 Urine Microscopic WBC 1 Urine Squamous Epithelial Cells FEW Urine Bacteria FEW A Urine Mucus FEW A Urine Hemoglobin NEGATIVE Urine Glucose NEGATIVE Urine Total Protein 1+ H Imaging Results CX 5.2 cm and closed. Placenta is posterior. No blood was noted on the US probe. U/A negative. Assessment/Plan A: IUP at 23w 6d. Vaginal bleeding. P: Pt reassured that all OK. D/C pt home. Pelvic rest x 2 weeks. SIRISHA VELASQUEZ MD Mar 18, 2017 00:14
== END 2017-03-18 00:30 | disposition home or self-care (01) ==
LOC: OBT 20:58 → L-D 21:00 → OBT 03-18 00:30
PROVIDERS: ATTEND Obstetrics & Gynecology
DX: O46.92 Antepartum hemorrhage, unspecified, second trimester (principal); Z3A.23 23 weeks gestation of pregnancy
CPT/HCPCS: 76815; 76817; 81001; Z7500; G0463

== ENCOUNTER 2017-06-16 03:25 | Outpatient (CLI) | payer OTHER ==
[~2017-06-16] VITALS: Ht 160 cm; Wt 83.2 kg
[~2017-06-16 03:25] MED LIST changes: -ACET325T45 PO; -ACET500C5 PO; -ACYC400T2 PO; -AMO500 PO; +CALC-516 PO; -CYCL-319 PO; +FERR325C PO; -HYDR-3498 PO; -IBUP-1542 PO; -ONDA4TAB14 PO; +PRENAT PO
[2017-06-16 04:36] VITALS: Ht 160 cm; Wt 83.2 kg
[2017-06-16 04:37] VITALS: BP 123/78; PULSE 18; RESP 18
--- NOTE | 2017-06-16 06:14 | PN ---
Triage Information Date/Time Reason for visit: Uterine contractions (starting at 11am 06/15) Weeks of Gestation 37+6 /Para 3/2 Diabetes: none Hypertention: none Additional information Receiving testing for Low PAPPA. Reports normal FM, denies LOF or VB Objective Vital Signs Date Time Temp Pulse Resp B/P Pulse Ox O2 Delivery O2 Flow Rate FiO2 06/16/17 04:37 97.9 18 18 123/78 Room Air Heart Rate: 120's Heart Rate Comments mod variability, +accels, no decels Contractions: 6-10 Minutes Apart (irregular q7-11 min) Exam /-3 Disposition: awaiting repeat SVE Assessment/Plan Reactive NST Possible early labor Pt desires repeat SVE, thus will ambulate with reexamine cervix in 2hrs RAHEL COMBS MD Jun 16, 2017 06:14
--- NOTE | 2017-06-16 08:20 | TRIAGE ---
OB Triage Datetime Report Generated by CPN: 06/16/2017 08:20 Datetime: 06/16/2017 08:06 Vaginal Exam Dilatation (cms): 1.5 Effacement (%): 40 Station: -4 Exam By: KHEMANI Vaginal Bleeding: None Cervix, Consistency: Firm Cervix, Position: Posterior Datetime: 06/16/2017 07:59 Monitor Mode: External Monitor Mode: External US Datetime: 06/16/2017 05:00 Stage of : OB Triage Labor Evaluation Frequency: 7-11 Monitor Mode: External Duration (sec)2399: 50-100 Quality: Moderate Pattern: Normal: <= 5 Contractions in 10 Minutes Resting Tone [place]: Relaxed Heart Rate FHR Baseline Rate: 125 Monitor Mode: External US FHR Baseline Changes: No Baseline Change Variability: Moderate 6-25 bpm Accelerations: 15X15 Decelerations: None Category: Category I Datetime: 06/16/2017 04:19 Vaginal Exam Dilatation (cms): 2.0 Effacement (%): 50 Station: -3 Exam By: Isma Malin RN Vaginal Bleeding: None Cervix, Consistency: Moderate Cervix, Position: Anterior Datetime: 06/16/2017 04:15 Assessment Type: Triage Maternal Assessment Level of Consciousness: Fully Conscious DTR's/Clonus: DTRs 2+; No Clonus Headache: Denies Blurred Vision: No Respiratory Effort: Unlabored; Regular Rhythm; Equal Expansion Breath Sounds, Left: Clear and Equal Breath Sounds, Right: Clear and Equal Nausea/Vomiting: Denies RUQ Epigastric Pain: Denies Lower Extremities Edema: None Degree: None Upper Extremities Edema: None Degree: None Facial Edema: None Fall Risk Assessment History of Falling: (0) No Secondary Diagnosis: (0) No Ambulatory Aid: (0) Bedrest/Nurse Assist IV Therapy: (0) No Gait: (0) Normal/Bedrest/Immobile Mental Status: (0) Oriented to Own Ability Fall Score: 0 Fall Risk Score Definition: No Risk: No action required Pain Assessment Pain Scale: 9 Pain Presence: Intermittent Pain Type: Contraction Pain Location: Back; Perineum Pain Goal: 5 Pain Relief Measures: Comfort Measures Datetime: 06/16/2017 04:10 Monitor Mode: External Contraction Comments: Applied Monitor Mode: External US Comments: Applied Datetime: 06/16/2017 03:34 Time of Arrival: 06/16/2017 03:15 EGA: 37.6 Arrived By: Wheelchair Arrived From: Home Chief Complaint: UC's Movement: Present Contractions: Occasional Time Contractions Began: 06/15/2017 11:00 Contractions: 7-11mins Rupture of Membranes: Denies Vaginal Discharge: Denies Recent Sexual Intercouse: Denies Abdominal Trauma: Not Applicable Patient Complaints: Contractions Time Provider Notified: 06/16/2017 03:34 Provider Notified: COMBS Initial Plan: EFM X2, SVE, ambulate Datetime: 03/17/2017 23:11 Labor Evaluation Frequency: 0 Monitor Mode: External Resting Tone [place]: Relaxed Contraction Comments: Pt denies feeling ucs, cramping. Abdomen remains soft to palpation Datetime: 03/17/2017 23:02 Stage of : OB Triage Datetime: 03/17/2017 22:23 Monitor Mode: External Datetime: 03/17/2017 22:19 Labor Evaluation Frequency: 0 Monitor Mode: External Resting Tone [place]: Relaxed Contraction Comments: Pt denies feeling ucs, cramping. abdomen soft to palpation. Datetime: 03/17/2017 22:13 Stage of : OB Triage Datetime: 03/17/2017 21:50 Stage of : OB Triage Datetime: 03/17/2017 21:49 Stage of : OB Triage Datetime: 03/17/2017 21:44 Stage of : OB Triage Datetime: 03/17/2017 21:28 Heart Rate FHR Baseline Rate: 130 Monitor Mode: Doppler Comments: X 1 MIN. Fhts audible to 165 bts/min Datetime: 03/17/2017 21:25 Stage of : OB Triage Datetime: 03/17/2017 21:07 Time of Arrival: 03/17/2017 20:55 EGA: 24.6 Arrived By: Wheelchair Arrived From: Home Chief Complaint: spotting p sexual intercourse Movement: Present Contractions: Denies/Absent Rupture of Membranes: Denies Vaginal Bleeding: Scant Vaginal Discharge: Denies Recent Sexual Intercouse: Yes Abdominal Trauma: Not Applicable Initial Plan: VS, DOPPLER, TOCO, UA, CL, PLACENTA
== END 2017-06-16 08:35 | disposition home or self-care (01) ==
LOC: L-D 03:25 → OBT 03:25
PROVIDERS: ATTEND Obstetrics & Gynecology
DX: O62.9 Abnormality of forces of labor, unspecified (principal); Z3A.37 37 weeks gestation of pregnancy
CPT/HCPCS: G0463

== ENCOUNTER 2017-06-20 14:30 | Outpatient (CLI) | payer OTHER ==
[~2017-06-20] VITALS: Ht 149.9 cm; Wt 84.8 kg
[2017-06-20 14:53] VITALS: BP 108/64; PULSE 94; RESP 18; Ht 149.9 cm; Wt 84.8 kg
--- NOTE | 2017-06-20 15:24 | RADRPT ---
PROCEDURE: Biophysical profile CLINICAL INDICATION: distress. TECHNIQUE: Color and becerra-scale ultrasound images of an intrauterine gestation were obtained. COMPARISON: Ovary ultrasound March 17, 2017 FINDINGS: A single live intrauterine gestation is identified in cephalic position with an estimated hear t rate of 143 beats per minute. The placenta is located posteriorly and has a grade II. The cervix is obscured by head shadows. No evidence of abruption identified. DELIA is 15.6 cm. movement 2/2. tone 2/2. breathing movement 2/2. Qualitative AFV 2/2 Total biophysical profile 03/26 IMPRESSION: 03/26 biophysical profile. RPTAT: AA .Sergio Painting MD, Date Time Electronically viewed and signed by .Sergio Painting MD, MD on 06/20/2017 15:24 .P/
--- NOTE | 2017-06-20 16:23 | TRIAGE ---
OB Triage Datetime Report Generated by CPN: 06/20/2017 16:23 Datetime: 06/20/2017 15:30 Stage of : OB Triage Maternal Assessment Level of Consciousness: Fully Conscious Labor Evaluation Frequency: 4UC/HR Monitor Mode: External Duration (sec)2399: 70-100 Quality: Mild Resting Tone [place]: Relaxed Heart Rate FHR Baseline Rate: 135 Monitor Mode: External US Variability: Absent - Undetectable Accelerations: 15X15 Decelerations: None Category: Category I Pain Assessment Pain Scale: 0 Pain Goal: 3 Vaginal Exam Membrane Status: Intact Vaginal Bleeding: None Datetime: 06/20/2017 14:43 Assessment Type: Triage Maternal Assessment Level of Consciousness: Fully Conscious DTR's/Clonus: DTRs 2+; No Clonus Headache: Denies Blurred Vision: No Respiratory Effort: Unlabored; Regular Rhythm; Equal Expansion Breath Sounds, Left: Clear and Equal Breath Sounds, Right: Clear and Equal Nausea/Vomiting: Denies RUQ Epigastric Pain: Denies Lower Extremities Edema: None Degree: None Upper Extremities Edema: None Degree: None Facial Edema: None Fall Risk Assessment History of Falling: (0) No Secondary Diagnosis: (0) No Ambulatory Aid: (0) Bedrest/Nurse Assist IV Therapy: (0) No Gait: (0) Normal/Bedrest/Immobile Mental Status: (0) Oriented to Own Ability Fall Score: 0 Fall Risk Score Definition: No Risk: No action required Datetime: 06/20/2017 14:41 Time of Arrival: 06/20/2017 14:22 EGA: 38.3 Arrived By: Ambulatory Arrived From: Office Chief Complaint: PT HERE C/O DFM Movement: Absent Contractions: Denies/Absent Rupture of Membranes: Denies Vaginal Bleeding: None Vaginal Discharge: Denies Recent Sexual Intercouse: Denies Abdominal Trauma: Not Applicable Patient Complaints: None Time Provider Notified: 06/20/2017 15:45 Provider Notified: MICHAEL Initial Plan: BPP/NST Monitor Mode: External Monitor Mode: External US Datetime: 06/20/2017 14:38 Monitor Mode: External Monitor Mode: External US Datetime: 06/16/2017 04:15 Fall Score: 0 Fall Risk Score Definition: No Risk: No action required Datetime: 06/16/2017 03:34 EGA: 37.6 Datetime: 03/17/2017 21:07 EGA: 24.6
--- NOTE | 2017-06-20 19:37 | CONS ---
Date/Time of Note Date/Time of Note DATE: 06/20/17 TIME: 19:30 Consultation Date/Type/Reason Admit Date/Time June 20, 2017 OB triage consult This patient is a 31 years old 3 para 2 living 2 who had both deliveries by vaginal with estimated date of confinement of 07/01/2017 which makes her 38 weeks and 3 days. she came to triage complaining of low movement. On reviewing her record her lab tests were basically, normal blood type O Rh+, hepatitis B surface antigen, HIV, gonorrhea, chlamydia were all negative for nonreactive. she was immune to rubella. on physical examination she is a well-developed well-nourished near-term . her general vital signs appears to be normal.With blood pressure 108/64, pulse rate of 94, respiration 18, temperature 98.1, and oxygen saturation at room temperature is 98%. movement appears to be normal ,abdomen is soft, she does not have much of contractions. on pelvic examination the cervix was about 1-2 cm 50% effaced -2 station with intact membranes Constitutional: No chills, No diaphoresis, No disoriented, No febrile, No improved, No no complaints, No other, No poor po, No requiring IVF, No requiring O2 Eyes: No discharge, No no complaints, No other, No pain, No redness, No visual change ENT: No bleeding, No congestion, No discharge, No dysphagia, No no complaints, No other, No pain, No sore throat Respiratory: No cough, No no complaints, No other, No pain, No pleuritic pain, No shortness of breath, No sputum, No wheezing Cardiovascular: No chest pain, No edema, No lightheadedness, No no complaints, No orthopenea, No other, No palpitations, No paroxysmal nocturnal dyspnea Gastrointestinal: No blood, No constipation, No decreased appetite, No diarrhea , No flatus, No nausea, No no complaints, No other, No pain, No passing stool, No vomiting Genitourinary: other (As I mentioned on pelvic examination the cervix was about 1-2 cm 50% effaced -2 station with intact membranes), No bleeding, No discharge, No dysuria, No flank pain, No hematuria, No no complaints Musculoskeletal: No back pain, No bone/joint pain, No neck pain, No no complaints, No other, No restricted range of motion, No swelling Skin: No bruising, No erythema, No laceration, No no complaints, No other, No pruritis, No rash, No skin lesions Neurologic: No confusion, No dizziness, No focal-weakness, No headache, No no complaints, No other, No seizure, No syncope Endocrine: No dry skin, No no complaints, No other, No polydypsia, No polyuria , No temp intolerance Additional Comments We did order an ultrasound study result was a single live intrauterine gestation with heart rate of 1 43/min placenta was located posteriorly grade 2 . Her amniotic fluid index was 15.6 cm with biophysical profile of 8/8. 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
== END 2017-06-20 17:15 | disposition home or self-care (01) ==
LOC: OBT 14:30 → L-D 14:30 → OBT 17:15
PROVIDERS: ATTEND Obstetrics & Gynecology
DX: O36.8130 Decreased fetal movements, third trimester, not applicable or unspecified (principal); Z3A.38 38 weeks gestation of pregnancy
CPT/HCPCS: 76818

== ENCOUNTER 2017-07-01 18:33 | Inpatient (IN) | payer OTHER ==
[~2017-07-01] VITALS: Ht 149.9 cm; Wt 85.0 kg
[~2017-07-01 18:33] MED LIST changes: -CALC-516 PO; -FERR325C PO
[2017-07-01 18:46] VITALS: Ht 149.9 cm; Wt 85.0 kg
[2017-07-01 18:47] VITALS: BP 137/82; RESP 16
[2017-07-01] MEDS ORDERED: IBUPROFEN 600 MG TAB PO PRN (20:00)
[2017-07-01] MEDS ORDERED: LIDOCAINE 1% (MPF) 30 ML INJ INJ PRN (20:00)
[2017-07-01] MEDS ORDERED: BUTORPHANOL 2 MG INJ IV PRN (20:00)
[2017-07-01] MEDS ORDERED: OXYTOCIN 30 UNITS/LR 500 ML IV PRN (20:00)
[2017-07-01] MEDS ORDERED: CARBOPROST 250 MCG INJ IM PRN (20:00)
[2017-07-01] MEDS ORDERED: OXYTOCIN 30 UNITS/LR 500 ML IV SCH ×2 (20:00)
[2017-07-01] MEDS ORDERED: LACTATED RINGER'S 1,000 ML IV PRN (20:00)
[2017-07-01] MEDS ORDERED: OXYCODONE/ASPIRIN (4.88/325) TAB PO PRN (20:00)
[2017-07-01] MEDS ORDERED: METHYLERGONOVINE 0.2 MG INJ IM PRN (20:00)
[2017-07-01] MEDS ORDERED: MISOPROSTOL 200 MCG TAB PR PRN (20:00)
--- NOTE | 2017-07-01 20:01 | RADRPT ---
PROCEDURE: US Obstetrical, limited CLINICAL INDICATION: Mild physical profile and DELIA TECHNIQUE: Multiple real-time images were acquired of the patient's maternal abdomen utilizing a curved array transducer. COMPARISON: 06/20/2017 FINDINGS: There is a single live intrauterine fetus positioned cephalic. The placenta is implanted at the fundus to the left and is grade 3. There is no placenta previa or abruptio. The amniotic fluid index measures 156 millimeter, which falls between the 50 at the 95th percentile and is therefore normal. The heart rate is 136 beats per minute. Biophysical profile score: 8/8. IMPRESSION: 1. Single live intrauterine fetus, cephalic presentation. 2. Left fundal placenta, grade 3. 3. The amniotic fluid index measures 156 mm following between the 50 at the 95th percentile and the refore normal. 4. Biophysical profile score: 8/8. Physician Remedios Date Time Electronically viewed and signed by Physician Remedios on 07/01/2017 20:01 /
[2017-07-01] MEDS: LACTATED RINGER'S 1,000 ML IV SCH (20:39)
[2017-07-01 21:01] LABS: BASOPHILS % 0.1 % (0.0-2.0); EOSINOPHILS % 0.4 % (0.0-7.0); HEMOGLOBIN 9.5 g/dl (12.0-16.0); LYMPHOCYTES # 1.3 10^3/ul (0.8-2.9); LYMPHOCYTES % 19.3 % (15.0-51.0); MEAN CORPUSCULAR HEMOGLOBIN 24.9 pg (29.0-33.0); MEAN CORPUSCULAR HGB CONC 31.7 g/dl (32.0-37.0); MEAN CORPUSCULAR VOLUME 78.5 fl (82.0-101.0); MEAN PLATELET VOLUME 10.5 fl (7.4-10.4); MONOCYTE # 0.4 10^3/ul (0.3-0.9); MONOCYTES % 5.8 % (0.0-11.0); NEUTROPHIL # 5.1 10^3/ul (1.6-7.5); NEUTROPHILS % 73.8 % (39.0-77.0); PLATELET COUNT 179 10^3/UL (140-415); RED BLOOD COUNT 3.82 10^6/ul (4.20-5.40); RED CELL DISTRIBUTION WIDTH 14.8 % (11.5-14.5); WHITE BLOOD COUNT 6.9 10^3/ul (4.8-10.8)
[2017-07-01 21:10] LABS: INR 0.93; PARTIAL THROMBOPLASTIN TIME 28.1 Sec (25.0-35.0); PROTIME 12.5 Sec (12.2-14.2)
--- NOTE | 2017-07-01 21:55 | TRIAGE ---
OB Triage Datetime Report Generated by CPN: 07/01/2017 21:54 Datetime: 07/01/2017 21:05 Time of Arrival: 07/01/2017 20:00 EGA: 40.0 Arrived By: Ambulatory Arrived From: OB TRIAGE Datetime: 07/01/2017 21:00 Labor Evaluation Frequency: X3 Monitor Mode: External Duration (sec)2399: 50-70 Pattern: Normal: <= 5 Contractions in 10 Minutes Heart Rate FHR Baseline Rate: 135 Monitor Mode: External US FHR Baseline Changes: No Baseline Change Variability: Moderate 6-25 bpm Accelerations: 15X15 Category: Category I Datetime: 07/01/2017 20:20 Stage of : Labor Datetime: 07/01/2017 20:00 Stage of : Labor Assessment Type: Admission Assessment Vaginal Bleeding: None Maternal Assessment Level of Consciousness: Fully Conscious Headache: Denies Blurred Vision: No Respiratory Effort: Unlabored; Regular Rhythm; Equal Expansion Nausea/Vomiting: Denies RUQ Epigastric Pain: Present (Annotations: PT. HAS HX OF ACID REFLUX, PT. STATES SHE HAS MINOR 'HE ARTBURN' AT THIS TIME) Lower Extremities Edema: TRACE BILATERAL EDEMA Upper Extremities Edema: None Degree: None Facial Edema: None Fall Risk Assessment History of Falling: (0) No Secondary Diagnosis: (0) No Ambulatory Aid: (0) Bedrest/Nurse Assist IV Therapy: (0) No Gait: (0) Normal/Bedrest/Immobile Mental Status: (0) Oriented to Own Ability Fall Score: 0 Fall Risk Score Definition: No Risk: No action required Labor Evaluation Frequency: X4 Monitor Mode: External Duration (sec)2399: 60-90 Pattern: Normal: <= 5 Contractions in 10 Minutes Heart Rate FHR Baseline Rate: 140 Monitor Mode: External US FHR Baseline Changes: No Baseline Change Variability: Moderate 6-25 bpm Accelerations: 15X15 Decelerations: None Pain Assessment Pain Scale: 6 Pain Presence: Intermittent Pain Type: Contraction Pain Location: Abdomen Pain Goal: 3 Membrane Status: Intact Datetime: 07/01/2017 19:27 Stage of : OB Triage Datetime: 07/01/2017 19:20 Stage of : OB Triage Assessment Type: Triage Maternal Assessment Level of Consciousness: Fully Conscious Headache: Denies Blurred Vision: No Respiratory Effort: Unlabored; Regular Rhythm; Equal Expansion Nausea/Vomiting: Denies RUQ Epigastric Pain: Denies Facial Edema: None Fall Risk Assessment History of Falling: (0) No Secondary Diagnosis: (0) No Ambulatory Aid: (0) Bedrest/Nurse Assist IV Therapy: (0) No Gait: (0) Normal/Bedrest/Immobile Mental Status: (0) Oriented to Own Ability Fall Score: 0 Fall Risk Score Definition: No Risk: No action required Datetime: 07/01/2017 18:52 Stage of : OB Triage Assessment Type: Triage Maternal Assessment Level of Consciousness: Fully Conscious DTR's/Clonus: DTRs 2+; No Clonus Headache: Denies Blurred Vision: No Respiratory Effort: Unlabored; Regular Rhythm; Equal Expansion Breath Sounds, Left: Clear and Equal Breath Sounds, Right: Clear and Equal Nausea/Vomiting: Denies RUQ Epigastric Pain: Denies Lower Extremities Edema: None Degree: None Upper Extremities Edema: None Degree: None Facial Edema: None Temperature Route: Oral Fall Risk Assessment History of Falling: (0) No Secondary Diagnosis: (0) No Ambulatory Aid: (0) Bedrest/Nurse Assist IV Therapy: (0) No Gait: (0) Normal/Bedrest/Immobile Mental Status: (0) Oriented to Own Ability Fall Score: 0 Fall Risk Score Definition: No Risk: No action required Labor Evaluation Frequency: INITIAL PLACEMENT Monitor Mode: External Heart Rate FHR Baseline Rate: 135 Monitor Mode: External US Variability: Moderate 6-25 bpm Accelerations: 15X15 Decelerations: None Category: Category I Pain Assessment Pain Scale: 7 Pain Presence: Intermittent Pain Type: Cramping; Contraction Pain Location: Abdomen Vaginal Exam Dilatation (cms): 2.0 Effacement (%): 70 Station: -3 Exam By: SGuera ESCALERA Datetime: 07/01/2017 18:51 Time of Arrival: 07/01/2017 18:30 EGA: 40.0 Arrived By: Ambulatory Arrived From: Home Chief Complaint: UC'S Movement: Present Contractions: Irregular Contractions: Q 15 MINUTES Rupture of Membranes: Denies Vaginal Bleeding: None Vaginal Discharge: Denies Recent Sexual Intercouse: Denies Abdominal Trauma: Not Applicable Patient Complaints: Cramping Time Provider Notified: 07/01/2017 19:30 Provider Notified: MICHAEL Initial Plan: EFMX2, VE CALL MD Datetime: 06/20/2017 17:12 Stage of : OB Triage Vaginal Exam Dilatation (cms): 2.0 Exam By: FOROOHAR Datetime: 06/20/2017 14:43 Fall Score: 0 Fall Risk Score Definition: No Risk: No action required Datetime: 06/20/2017 14:41 EGA: 38.3 Initial Plan: BPP/NST/ SVE Datetime: 06/16/2017 04:15 Fall Score: 0 Fall Risk Score Definition: No Risk: No action required Datetime: 06/16/2017 03:34 EGA: 37.6 Datetime: 03/17/2017 21:07 EGA: 24.6 Presentation 'A': Cephalic
[2017-07-02] MEDS ORDERED: MINERAL OIL LIGHT 10 ML VIAL TOP PRN ×2 (02:00→06:00)
[2017-07-02] MEDS: LACTATED RINGER'S 1,000 ML IV SCH ×3 (03:00→19:49)
[2017-07-02] MEDS: OXYTOCIN 30 UNITS/LR 500 ML IV SCH (08:59)
[2017-07-02] MEDS ORDERED: DINOPROSTONE 10 MG VAG SUPP VAG ONE (13:30)
--- NOTE | 2017-07-02 14:39 | HP ---
Date/Time of Note Date/Time of Note DATE: 07/02/17 TIME: 14:35 OB - History Hx of Present Free Text/Dictation 31 y/o female admitted at 40+ weeks for induction of labor Last Menstrual Period: Sep 24, 2016 Estimated Due Date: Jul 01, 2017 : 3 Para: 2 Past Family/Social History * Past Medical, Surgical, Family and Obstetric Histories reviewed from chart. Blood Type: O+ Rubella: immune RPR/VDRL: Negative GBS Status: Negative HBsAG: Negative OB Admission Exam Vital Signs Vital Signs Vital Signs Date Time Temp Pulse Resp B/P Pulse Ox O2 Delivery O2 Flow Rate FiO2 07/01/17 18:47 98.1 16 137/82 Physical Exam HEENT: WNL Heart: Rhythm Normal Lungs: Clear, Equal Abdomen: WNL Extremities: Normal Reflexes: Normal Cervical Dilatation: 1cm Effacement: 0% Station: -3 Membranes: Intact Heart Rate: 140's Accelerations: Accelerations Present Decelerations: No Decelerations Varibility: Moderate Contractions on Admission: None Last 72 hours Lab Results CBC & BMP 07/01/17 20:44 OB Assessment/Plan Other Assessment: Term gestation Low plasma protein A Other plan: We will Place Cervidil for induction ALBERTO ACE MD Jul 02, 2017 14:39
[2017-07-03] MEDS: LACTATED RINGER'S 1,000 ML IV SCH ×5 (06:06→21:40)
[2017-07-03] MEDS ORDERED: FENTAnyl 2MCG/ML-ROPIV 0.2% 100 ML ONE (09:04)
[2017-07-03] MEDS ORDERED: OXYTOCIN 30 UNITS/LR 500 ML IV SCH ×2 (14:00→23:00)
[2017-07-03] MEDS: OXYTOCIN 30 UNITS/LR 500 ML IV SCH (15:07)
[2017-07-03] MEDS ORDERED: NALOXONE (0.4 MG/ML) INJ IV PRN (17:00)
[2017-07-03] MEDS ORDERED: FENTAnyl 2MCG/ML-ROPIV 0.2% 100 ML BAG EPI SCH (17:00)
--- NOTE | 2017-07-03 20:03 | PN ---
Date/Time of Note Date/Time of Note DATE: 07/03/17 TIME: 20:01 OB Subjective Subjective Subjective No complaint of a liver contraction As epidural OB Objective Objective Objective Vital signs stable in general physical exam is normal Cervix is completely effaced 5 cm open presenting part vertex at -3 station Membranes were ruptured amniotic fluid appeared to be clear OB Assessment/Plan Reason for admission: induction of labor Other Assessment: Term gestation Active phase of labor Other plan: We will continue with Pitocin augmentation of labor ALBERTO ACE MD Jul 03, 2017 20:03
--- NOTE | 2017-07-03 22:33 | LDN ---
Date/Time of Note Date/Time of Note DATE: 07/03/17 TIME: 22:32 Delivery Summary 07/03/2017 Weeks of Gestation 38 weeks Placenta Delivered: Spontaneously Meconium: Light Episiotomy: No Perineal laceration: 0 Anesthesia type: Epidural Estimated blood loss: 300 Sponge & Needle done & correct: Yes All needle counts correct: Yes Any foreign bodies felt in the: No Problems: Infant Delivery Information Sex Sex: female Apgars 1 Minute: 8 5 Minute: 9 Suctioning Nose & mouth suctioned at eduard: Yes Delee suction performed: Yes Umbilical Cord Umbilical cord with: 3 Vessels Cord presentations: nuchal cord Nuchal cord present X: 1 Cord Blood was obtained: Yes WES JOHNSTON MD Jul 03, 2017 22:33
[2017-07-03] MEDS ORDERED: LACTATED RINGER'S 1,000 ML IV* SCH (22:35)
[2017-07-03] MEDS ORDERED: ACETAMINOPHEN 325 MG TAB PO PRN (23:00)
[2017-07-03] MEDS ORDERED: OXYTOCIN 30 UNITS/LR 500 ML IV PRN (23:00)
[2017-07-03] MEDS ORDERED: WITCH HAZEL/GLYCERIN PAD PR PRN (23:00)
[2017-07-03] MEDS ORDERED: ONDANSETRON 4 MG INJ IV PRN (23:00)
[2017-07-03] MEDS ORDERED: METHYLERGONOVINE 0.2 MG INJ IM PRN (23:00)
[2017-07-03] MEDS ORDERED: DIPHENHYDRAMINE 25 MG CAP PO PRN (23:00)
[2017-07-03] MEDS ORDERED: HYDROCODONE/APAP (5/325) TAB PO PRN (23:00)
[2017-07-03] MEDS ORDERED: ZOLPIDEM 5 MG TAB PO PRN (23:00)
[2017-07-03] MEDS ORDERED: MISOPROSTOL 200 MCG TAB PR PRN (23:00)
[2017-07-03] MEDS ORDERED: CARBOPROST 250 MCG INJ IM PRN (23:00)
[2017-07-03] MEDS ORDERED: LANOLIN 7 GM TUBE TOP PRN (23:00)
[2017-07-04] MEDS ORDERED: IBUPROFEN 600 MG TAB PO PRN
[2017-07-04 00:50] VITALS: BP 115/76; PULSE 90; RESP 18
[2017-07-04 03:53] VITALS: BP 103/59; RESP 19
[2017-07-04] MEDS: IBUPROFEN 600 MG TAB PO SCH ×5 (05:39→23:30)
[2017-07-04 08:40] VITALS: BP 97/60; PULSE 101; RESP 20
[2017-07-04] MEDS: SENNA/DOCUSATE NA (8.6MG/50MG) TAB PO SCH ×2 (09:00→21:34)
[2017-07-04] MEDS: PRENATAL VITAMIN PO SCH (10:10)
[2017-07-04 12:33] VITALS: BP 106/58; PULSE 92; RESP 18
[2017-07-04 16:00] VITALS: BP 117/78; PULSE 87; RESP 18
[2017-07-04 16:30] LABS: BASOPHILS % 0.1 % (0.0-2.0); EOSINOPHILS % 0.4 % (0.0-7.0); HEMATOCRIT 27.7 % (37.0-47.0); HEMOGLOBIN 8.9 g/dl (12.0-16.0); LYMPHOCYTES # 1.6 10^3/ul (0.8-2.9); LYMPHOCYTES % 14.1 % (15.0-51.0); MEAN CORPUSCULAR HEMOGLOBIN 25.6 pg (29.0-33.0); MEAN CORPUSCULAR HGB CONC 32.1 g/dl (32.0-37.0); MEAN CORPUSCULAR VOLUME 79.8 fl (82.0-101.0); MEAN PLATELET VOLUME 10.5 fl (7.4-10.4); MONOCYTE # 0.7 10^3/ul (0.3-0.9); MONOCYTES % 5.8 % (0.0-11.0); PLATELET COUNT 159 10^3/UL (140-415); RED BLOOD COUNT 3.47 10^6/ul (4.20-5.40); RED CELL DISTRIBUTION WIDTH 14.6 % (11.5-14.5); WHITE BLOOD COUNT 11.4 10^3/ul (4.8-10.8)
[2017-07-04] MEDS ORDERED: INFLUENZA VIRUS VACCINE 0.5 ML (DISPENSING) IM* ONE (17:00)
--- NOTE | 2017-07-04 17:31 | DS ---
Date/Time of Note Date/Time of Note Home following day DATE: 07/04/17 TIME: 17:31 Obstetrical Discharge Record Final Diagnosis Final Diagnosis: Term delivered Other Final Diagnosis Status post vaginal delivery Vaginal Delivery Obstetrical Delivery: Spontaneous Complications Augmentation: Yes Induction: Yes Condition on Discharge Physical Assessment Last Vitals: See nurse's notes Voiding: Yes Bowel Movement: Yes Breast: Soft, non-tender, Filling Fundus: Firm Abdomen and Incision: Soft bowel sounds present Episiotomy: Not applicable Calf Tenderness: No Patient Condition: Good ALBERTO ACE MD Jul 04, 2017 17:31
--- NOTE | 2017-07-04 17:32 | PD.PPDC ---
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
[2017-07-04] MEDS ORDERED: IBUP-1542 PO (17:33)
[2017-07-04] MEDS: CEPHALEXIN 500 MG CAP PO SCH ×2 (18:06→23:30)
[2017-07-04 20:00] VITALS: BP 107/69; PULSE 82; RESP 18
[2017-07-05 04:00] VITALS: BP 106/58; PULSE 82; RESP 18
[2017-07-05] MEDS: IBUPROFEN 600 MG TAB PO SCH ×2 (06:22→12:09)
[2017-07-05] MEDS: CEPHALEXIN 500 MG CAP PO SCH ×2 (06:22→12:08)
[2017-07-05 08:00] VITALS: BP_SYST 98; PULSE 84; RESP 18
[2017-07-05] MEDS ORDERED: INFLUENZA VIRUS VACCINE 0.5 ML (DISPENSING) IM* ONE (09:00)
[2017-07-05] MEDS: SENNA/DOCUSATE NA (8.6MG/50MG) TAB PO SCH (09:05)
[2017-07-05] MEDS: PRENATAL VITAMIN PO SCH (09:06)
[2017-07-05 10:40] LABS: BASOPHILS % 0.3 % (0.0-2.0); EOSINOPHILS # 0.1 10^3/ul (0.0-0.5); EOSINOPHILS % 1.1 % (0.0-7.0); HEMATOCRIT 28.7 % (37.0-47.0); HEMOGLOBIN 9.1 g/dl (12.0-16.0); LYMPHOCYTES # 1.1 10^3/ul (0.8-2.9); LYMPHOCYTES % 13.3 % (15.0-51.0); MEAN CORPUSCULAR HEMOGLOBIN 25.5 pg (29.0-33.0); MEAN CORPUSCULAR HGB CONC 31.7 g/dl (32.0-37.0); MEAN CORPUSCULAR VOLUME 80.4 fl (82.0-101.0); MEAN PLATELET VOLUME 10.6 fl (7.4-10.4); MONOCYTE # 0.5 10^3/ul (0.3-0.9); MONOCYTES % 5.9 % (0.0-11.0); NEUTROPHIL # 6.2 10^3/ul (1.6-7.5); NEUTROPHILS % 78.8 % (39.0-77.0); PLATELET COUNT 149 10^3/UL (140-415); RED BLOOD COUNT 3.57 10^6/ul (4.20-5.40); RED CELL DISTRIBUTION WIDTH 14.7 % (11.5-14.5); WHITE BLOOD COUNT 7.9 10^3/ul (4.8-10.8)
== END 2017-07-05 15:30 | disposition home or self-care (01) | DRG 775 ==
LOC: OBT 18:33 → L-D 18:34 → OBT 19:40 → PP1 07-04 01:05
PROVIDERS: ADMIT Obstetrics & Gynecology; ATTEND Obstetrics & Gynecology
PROC: 10E0XZZ Delivery of Products of Conception, External Approach (ICD-10-PCS; principal; 2017-07-03)
PROC: 3E033VJ Introduction of Other Hormone into Peripheral Vein, Percutaneous Approach (ICD-10-PCS; 2017-07-03)
DX: O48.0 Post-term pregnancy (principal); O69.81X0 Labor and delivery complicated by cord around neck, without compression, not applicable or unspecified; Z3A.40 40 weeks gestation of pregnancy; Z37.0 Single live birth
CPT/HCPCS: 62319; 76818; 85025; 85610; 85730; 86592; 86900; 86901; 90686; 99464; G0463; J2590; J3010; J7120

== ENCOUNTER 2019-02-19 07:38 | Emergency (ER) | payer OTHER ==
[~2019-02-19] VITALS: Ht 152.4 cm; Wt 78.0 kg
[~2019-02-19 07:38] MED LIST changes: +IBUP-1542 PO
[2019-02-19 07:48] VITALS: BP 112/59; PULSE 67; RESP 18; Ht 152.4 cm; Wt 78.0 kg
[2019-02-19] MEDS ORDERED: FLUC150T PO (08:39)
[2019-02-19] MEDS ORDERED: CIPR500T4 PO (08:39)
[2019-02-19] MEDS ORDERED: MICO100S4 VG (08:39)
--- NOTE | 2019-02-19 10:33 | ERD ---
ER Documentation Chief Complaint Chief Complaint dysuria x 3 weeks HPI 33-year-old female presenting with dysuria x3 weeks. She states that it comes and goes. She has not taken medications for her symptoms. She has urinary frequency and burning with urination. She has some mild suprapubic pressure. Denies any hematuria. Patient also has some mild discharge that is white and finds that she has some itching sensation within the vaginal region. Denies any fevers. Denies back pain. Patient has no history of STDs. Denies medical problems. NKDA. Surgical history is a removal ovarian cyst. Social history denies ROS All systems reviewed and are negative except as per history of present illness. Medications Home Meds Active Scripts Ciprofloxacin Hcl* (Ciprofloxacin Hcl*) 500 Mg Tablet, 500 MG PO BID for 7 Days, TAB Prov:MIRIAN MAHAN PA-C 02/19/19 Fluconazole* (Diflucan*) 150 Mg Tablet, 150 MG PO ONCE, #1 TAB Prov:MIRIAN MAHAN PA-C 02/19/19 Miconazole Nitrate (Miconazole 7) 100 Mg Supp.vag, 100 MG VG QHS, #7 SUPP.VAG Prov:MIRIAN MAHAN PA-C 02/19/19 Ibuprofen* (Ibuprofen*) 600 Mg Tablet, 600 MG PO Q6, #30 TAB 0 Refills Prov:ALBERTO ACE MD 07/04/17 Reported Medications Multivit/Min/Fol Ac/Iron/Pren* ( S*) 1 Tab Tab, 1 TAB PO DAILY, TAB 03/17/17 Allergies Allergies: Coded Allergies: No Known Allergy (Unverified , 03/17/17) PMhx/Soc History of Surgery: Yes (ovarian cyst removal and appendectomy at 11yo) Anesthesia Reaction: No Hx Neurological Disorder: No Hx Respiratory Disorders: No Hx Cardiac Disorders: No Hx Psychiatric Problems: No Hx Miscellaneous Medical Probl: No Hx Alcohol Use: No Hx Substance Use: No Hx Tobacco Use: No Smoking Status: Never smoker FmHx Family History: No diabetes, No coronary disease, No other Physical Exam Vitals Vital Signs Date Temp Pulse Resp B/P (MAP) Pulse Ox O2 O2 Flow FiO2 Time Delivery Rate 02/19/19 98.0 67 18 112/59 99 07:48 (76) Physical Exam GENERAL: The patient is well-appearing, well-nourished, in no acute distress HEENT: Atraumatic. Conjunctivae are pink. Pupils equal, round, and reactive to light. There is no scleral icterus. Tympanic membranes clear bilaterally. Oropharynx clear. No nystagmus or photophobia. CHEST: Clear to auscultation bilaterally. There are no rales, wheezes or rhonchi. HEART: Regular rate and rhythm. No murmurs, clicks, rubs or gallops. ABDOMEN: Normal active bowel sounds. No distention. No organomegaly. Tender to palpation over the suprapubic region with no lateralized pain. BACK: No midline or flank tenderness. No CVA tenderness Results 24 hrs Laboratory Tests Test 02/19/19 08:19 Bedside Urine pH (LAB) 5.0 Bedside Urine Protein (LAB) Trace Bedside Urine Glucose (UA) Negative Bedside Urine Ketones (LAB) Negative Bedside Urine Blood Trace-intact Bedside Urine Nitrite (LAB) Negative Bedside Urine Leukocyte Esterase (L Trace POC Beta HCG, Qualitative NEGATIVE Procedures/MDM MDM: 33-year-old female presenting with dysuria. Patient's urine shows signs of infection patient has complaints indicative of urinary tract infection. She will be treated also for vaginitis that she has itching sensations with discharge. Patient is told symptoms change or worsen to return immediately to the ER. All questions answered at discharge Departure Diagnosis: Primary Impression: Dysuria Condition: Stable Patient Instructions: Dysuria Referrals: [facility] YOU HAVE RECEIVED A MEDICAL SCREENING EXAM AND THE RESULTS INDICATE THAT YOU DO NOT HAVE A CONDITION THAT REQUIRES URGENT TREATMENT IN THE EMERGENCY DEPARTMENT. FURTHER EVALUATION AND TREATMENT OF YOUR CONDITION CAN WAIT UNTIL YOU ARE SEEN IN YOUR DOCTORS OFFICE WITHIN THE NEXT 1-2 DAYS. IT IS YOUR RESPONSIBILITY TO MAKE AN APPOINTMENT FOR FOLOW-UP CARE. IF YOU HAVE A PRIMARY DOCTOR --you should call your primary doctor and schedule an appointment IF YOU DO NOT HAVE A PRIMARY DOCTOR YOU CAN CALL OUR PHYSICIAN REFERRAL HOTLINE AT IF YOU CAN NOT AFFORD TO SEE A PHYSICIAN YOU CAN CHOSE FROM THE FOLLOWING [facility] CLINICS [facility] [address] [facility]. [facility] [address] [facility]. [facility] [address] [facility] [facility] [address] [facility]. [facility] [address] [facility]. [facility] [address] Additional Instructions: FOLLOW UP WITH YOUR PRIMARY CARE PHYSICIAN TOMORROW.Return to this facility if you are not improving as expected. MIRIAN MAHAN PA-C Feb 19, 2019 10:33
== END 2019-02-19 09:09 | disposition home or self-care (01) ==
LOC: FTE 07:38
DX: R30.0 Dysuria (principal)
CPT/HCPCS: 81003; 81025; Z7502; 99283